=== PATIENT | female | born 1960 ===

== ENCOUNTER 2021-03-06 10:43 | Outpatient (CLI) | payer BC | END 2021-03-06 10:44 | disposition home or self-care (01) | LOC: CT 10:43 | PROVIDERS: ATTEND Internal Medicine Rheumatology | DX: R06.02 Shortness of breath (principal); J84.9 Interstitial pulmonary disease, unspecified; M34.9 Systemic sclerosis, unspecified; J47.9 Bronchiectasis, uncomplicated | CPT/HCPCS: 71250 ==